=== PATIENT | male | born 1990 | race Caucasian/White ===

== ENCOUNTER 2019-09-25 17:42 | Emergency (ER) | payer SELFPAY | END 2019-09-25 18:03 | disposition home or self-care (01) | LOC: NAV ERS 17:42 | DX: R45.6 Violent behavior (principal); Z91.14 Patient's other noncompliance with medication regimen; F17.210 Nicotine dependence, cigarettes, uncomplicated; F31.9 Bipolar disorder, unspecified; F20.9 Schizophrenia, unspecified; Z79.899 Other long term (current) drug therapy | CPT/HCPCS: 99284 ==